=== PATIENT | male | born 1985 | race Caucasian/White ===

== ENCOUNTER 2016-12-03 18:47 | Emergency (ER) | payer OTHER | END 2016-12-03 20:00 | disposition home or self-care (01) | LOC: ER1 18:47 | DX: S63.521A Sprain of radiocarpal joint of right wrist, initial encounter (principal); X58.XXXA Exposure to other specified factors, initial encounter; Y93.K1 Activity, walking an animal; Y92.009 Unspecified place in unspecified non-institutional (private) residence as the place of occurrence of the external cause | CPT/HCPCS: 29125; 73130; 99283 ==